=== PATIENT | female | born 1985 | race Caucasian/White ===

== ENCOUNTER 2022-08-14 12:01 | Emergency (ER) | payer OTHER ==
[~2022-08-14] VITALS: Ht 175 cm; Wt 118.0 kg
--- NOTE | 2022-08-14 12:24 | ED Integumentary General ---
General Chief Complaint: Bite-Animal/Human/Insect Stated Complaint: ALLERGIC REACTION, BITE Source: patient History of Present Illness Date Seen by Provider: Aug 14, 2022 Time Seen by Provider: 12:07 Initial Comments 37-year-old female presenting with complaints of generalized rash and itching since having a bite from something on while she was doing laundry. She had gone to the [facility] and they started her on triamcinolone as well as taking oral antihistamines including Pepcid, Benadryl, Claritin, Zyrtec. She has continued to have reactive skin with rash developing in multiple felisa roscoe. She denies any shortness of breath or wheezing. She does not have any trouble swallowing. Since the rash was spreading and not resolving with the medicine she came to be evaluated again. She states that she has previously taken prednisone and felt that it caused her to have weakness and fever for a week. She has not taken a steroid since then. Timing/Duration: getting worse (over the last 4-5 days) Location: generalized Possible Cause: no cause identified Modifying Factors: worse with scratching Associated Symptoms: No blisters, No change in skin texture, No edema, No fever, No flushing, No headache; hives; No jaundice, No malaise, No nasal congestion, No numbness, No pallor, No paresthesia, No petechiae; rash; No sore throat, No swelling/mass/lumps, No tingling Allergies and Home Medications Allergies Coded Allergies: prednisone (Verified Allergy, Severe, 08/14/22) weakness and fever Patient Home Medication List Home Medication List Reviewed: Yes Review of Systems Review of Systems Constitutional: No chills, No fever EENTM: see HPI Respiratory: see HPI Cardiovascular: see HPI Gastrointestinal: see HPI Genitourinary: no symptoms reported Musculoskeletal: no symptoms reported Skin: see HPI Psychiatric/Neurological: Anxiety Past Bzuktwr-Xstfzl-Plluav Hx Patient Social History Tobacco Use?: Yes Tobacco type used: Cigarettes Physical Exam Vital Signs Vital Signs - First Documented 08/14/22 12:10 Temp 36.5 Pulse 99 Resp 18 B/P (MAP) 158/107 (124) Pulse Ox 99 O2 Delivery Room Air Capillary Refill : General Appearance: WD/WN, obese HEENT: PERRL/EOMI, pharynx normal Neck: non-tender, full range of motion, supple, normal inspection Cardiovascular: normal peripheral pulses, regular rate, rhythm Respiratory: chest non-tender, lungs clear, normal breath sounds; No stridor Skin: warm/dry, rash (diffuse erythematous maculopapular rash and welts) Progress/Results/Core Measures Results/Orders My Orders Orders - ZOE SANCHEZ MD Dexamethasone Injection (Decadron Inje (08/14/22 12:26) Vital Signs/I&O 08/14/22 08/14/22 12:10 12:44 Temp 36.5 36.5 Pulse 99 99 Resp 18 18 B/P (MAP) 158/107 (124) 158/107 Pulse Ox 99 99 O2 Delivery Room Air Room Air Progress Progress Note : Progress Note Counseled patient that with patient having already using antihistamines and topical steroid the only thing I could really add would be a systemic steroid. We will try a shot of dexamethasone to see if it would help with her symptoms. Continue with the [id number] antihistamines as well as the topical triamcinolone from the clinic. Check back with the clinic if symptoms persist. Departure Impression Primary Impression: Allergic reaction to insect bite Disposition: HOME, SELF-CARE Condition: Stable Departure-Patient Inst. Decision time for Depature: 12:22 Referrals: WILFRID STOVALL APRN (Family) Primary Care Physician Patient Instructions: Insect Bites and Stings ED, Allergic Reaction ED Add. Discharge Instructions: Continue with the antihistamines over the counter to help with rash and itching. The steroid shot from today, Dexamethasone, will help to calm down your symptoms. You could take an oatmeal bath to help with itching and rash. Continue with the Triamcinolone steroid cream for your rash and itching. Check back with clinic if still not improving All discharge instructions reviewed with patient and/or family. Voiced understanding. ZOE SANCHEZ MD Aug 14, 2022 12:24
[2022-08-14 12:44] VITALS: BP 158/107
== END 2022-08-14 12:45 | disposition home or self-care (01) ==
LOC: ER FS 12:04
DX: T63.481A Toxic effect of venom of other arthropod, accidental (unintentional), initial encounter (principal); L23.89 Allergic contact dermatitis due to other agents; Z28.310 Unvaccinated for COVID-19
CPT/HCPCS: 99284